=== PATIENT | female | born 1955 | race Caucasian/White ===

== ENCOUNTER 2023-05-05 09:35 | Outpatient (CLI) | payer MEDICARE, OTHER, SELFPAY | END 2023-05-05 09:36 | disposition home or self-care (01) | PROVIDERS: PCP Family Medicine; Visit Provider Family Medicine | DX: E03.9 Hypothyroidism, unspecified (principal); E78.00 Pure hypercholesterolemia, unspecified; Z13.228 Encounter for screening for other metabolic disorders | CPT/HCPCS: 80053; 80061; 84443 ==

== ENCOUNTER 2023-08-04 09:34 | Outpatient (CLI) | payer MEDICARE, OTHER, SELFPAY | END 2023-08-04 09:35 | disposition home or self-care (01) | PROVIDERS: PCP Family Medicine; Visit Provider Family Medicine | DX: M81.0 Age-related osteoporosis without current pathological fracture (principal) | CPT/HCPCS: 80048; 83735; 84100 ==

== ENCOUNTER 2023-09-22 12:40 | Outpatient (RCR) | payer MEDICARE, OTHER, SELFPAY ==
--- NOTE | 2023-09-17 11:03 | PC.NURSE ---
Diagnosis: Osteoporosis, M81.0
--- NOTE | 2023-09-17 14:24 | URNOTE ---
Request received for authorization forShiraz ([id number]). Prior authorization is not required as services are based on medical necessity and follow Medicare guidelines.
[2023-09-22 13:37] LABS: Calcium* 9.8 mg/dL (8.4-10.6); Creatinine* 0.7 mg/dL (0.5-1.5); Est. Creatinine Clearance* 38.14; Estimated Glomerular Filt Rate 94 ml/min
[2023-09-22] MEDS: SODIUM CHLORIDE 0.9 % (FLUSH) 10 ML SYRINGE IVF (14:11)
[2023-09-22] MEDS: 0.9 % SODIUM CHLORIDE 250 ml IV (14:12)
== END 2024-03-20 23:59 | disposition home or self-care (01) ==
LOC: CCIC 12:40
PROVIDERS: PCP Family Medicine; Visit Provider Internal Medicine Hematology & Oncology
DX: M81.0 Age-related osteoporosis without current pathological fracture (principal)
CPT/HCPCS: 36415; 82310; 82565; 96374; J3489; J7050

== ENCOUNTER 2024-05-12 09:29 | Outpatient (CLI) | payer MEDICARE, OTHER, SELFPAY | END 2024-05-12 09:30 | disposition home or self-care (01) | PROVIDERS: PCP Family Medicine; Visit Provider Family Medicine | DX: E78.00 Pure hypercholesterolemia, unspecified (principal); R73.9 Hyperglycemia, unspecified; E03.9 Hypothyroidism, unspecified; R19.00 Intra-abdominal and pelvic swelling, mass and lump, unspecified site; J18.9 Pneumonia, unspecified organism; R91.1 Solitary pulmonary nodule | CPT/HCPCS: 80053; 80061; 84443 ==

== ENCOUNTER 2024-08-31 09:39 | Outpatient (CLI) | payer MEDICARE, OTHER, SELFPAY | END 2024-08-31 09:40 | disposition home or self-care (01) | LOC: NFLDREF 09-02 22:00 | PROVIDERS: PCP Family Medicine; Referring Provider Family Medicine; Visit Provider Family Medicine | DX: M81.0 Age-related osteoporosis without current pathological fracture (principal) | CPT/HCPCS: 82310; 82565; 82575; 83735; 84100 ==

== ENCOUNTER 2024-09-23 08:38 | Outpatient (RCR) | payer MEDICARE, OTHER, SELFPAY ==
[2024-09-23 08:47] VITALS: BP 132/75; PULSE 62; TEMP 36.9; O2SAT 97
== END 2025-03-22 23:59 | disposition home or self-care (01) ==
LOC: CCIC 08:38
PROVIDERS: PCP Family Medicine; Visit Provider Internal Medicine Hematology & Oncology
DX: M81.0 Age-related osteoporosis without current pathological fracture (principal)
CPT/HCPCS: 96365; J3489